=== PATIENT | female | born 1970 | race Caucasian/White ===

== ENCOUNTER 2022-06-09 08:48 | Outpatient (CLI) | payer OTHER, SELFPAY ==
--- OUTSIDE RECORDS SUMMARY | 2022-05-23 09:25 | XMS_ITS | Continuity of Care Document ---
:1970 Author Allergies, Adverse Reactions, Alerts No known allergies Social History Smoking Status Status Start Date End Date Date of Observat ion Never smoked tobacco January 152021 (finding) 12:05pm Additional Data Assigned Sex Female Problems Active Problems Medical Problem Onset Date Status Bunion Active Stage 1 hypertension Active Medications Medication Status Dose Units Route Directions Qty Days Start End Ins tructions Date Date Multiple Active 1 TABLET PO Daily Vitamins W/ Minerals (Womens Multi Vitamin & Mi) Unknown Strength TAB Silver Active 1 % EX Daily 15 uar Sulfadiazine y 2021 11:07am Diphtheria/Te Disconti 0.5 ML IM Once Novemberuar tanus/Acell nued , y Pertussis 2019, (Adacel) 0.5 11:34am 2019 Ml INJ 12:16p m Zoster Disconti 50 MCG IM Once March Vaccine nued , , Recombinant 2020 2020 Adj 2:07pm 2:15pm (Shingrix) 50 Mcg/0.5 Ml INJ Zoster Disconti 50 MCG IM Once January Vaccine nued , , Recombinant 2020 2020 Adj 11:19am 2:30pm (Shingrix) 50 Mcg/0.5 Ml INJ Immunizations Immunization Event Date Not Given Dose Emergency Room Nurse Lot Vac cine Reason Number Number Informatio n Statement (VIS) Deta il COVID-19 Pfizer February 16 PFIZER-BIONTECH [id number] 2020 COVID-19 Pfizer March 09, 2 PFIZER-BIONTECH [id number] 2020 COVID-19 Pfizer November 02, 3 [id number] 2020 Influenza July [id number] Shingrix January 30, GLAXO SK [id number] 2020 Shingrix April 04, 2021 2 GLAXO SK [id number] Tdap December 28, 1 SANOFI [id number] (adolescent/adul 2020 t) Advance Directives Advance Directive Response Recorded Date/Time Has patient completed a No January 15, 2 022 12:05pm Health Care Directive? Insurance Providers Guarantor Angela Gallagher Address [address] [place], [place] [id number] Contact Info. Home Phone: Payer Policy Id Coverage Subscriber's Subscriber Effective Expira tion Id Name Id Date Date [facility] [id number] Angela Gallagher
--- NOTE | 2022-06-09 08:45 | CRLHL7_ITS ---
For Patients: As a result of the Century Cures Act, medical imaging exams and procedure reports are released immediately into your electronic medical record. You may view this report before your referring provider. If you have questions, please contact your health care provider. BILATERAL MAMMOGRAM WITH COMPUTER-AIDED DETECTION AND TOMOSYNTHESIS TECHNIQUE: CC and MLO views were obtained. These mammographic images have been obtained using full-field digital technique. These mammographic images were interpreted with the benefit of computer-aided detection. Breast Tomosynthesis was used in this interpretation. COMPARISON FILM: 03/06/2021, 02/07/2020. FINDINGS: There are scattered areas of fibroglandular density IMPRESSION: There is no radiographic evidence for malignancy. ASSESSMENT: BI-RADS Category 1: Negative RECOMMENDATION: Routine screening mammogram in 1 year. A lay language report of this examination will be provided to the patient. Jr Rene M.D. Diagnostic Radiologist [email or web address] ALIE/Dictated by: Jr Rene MD @ 06/09/2022 12:59:00 PM (Electronically Signed)
== END 2022-06-09 08:49 | disposition home or self-care (01) ==
LOC: MAMMO 08:48
PROVIDERS: PCP Emergency Medicine; Visit Provider Emergency Medicine
DX: Z12.31 Encounter for screening mammogram for malignant neoplasm of breast (principal)
CPT/HCPCS: 77063; 77067

== ENCOUNTER 2023-10-20 09:11 | Outpatient (CLI) | payer OTHER, SELFPAY ==
--- NOTE | 2023-10-20 09:15 | CRLHL7_ITS ---
For Patients: As a result of the Century Cures Act, medical imaging exams and procedure reports are released immediately into your electronic medical record. You may view this report before your referring provider. If you have questions, please contact your health care provider. BILATERAL SCREENING MAMMOGRAM WITH COMPUTER-AIDED DETECTION AND TOMOSYNTHESIS TECHNIQUE: CC and MLO views were obtained. These mammographic images have been obtained using full-field digital technique. These mammographic images were interpreted with the benefit of computer-aided detection. Breast Tomosynthesis was used in this interpretation. COMPARISON FILM: 06/09/22, 03/06/21, 02/07/20. FINDINGS: There are scattered areas of fibroglandular density IMPRESSION: There is no radiographic evidence for malignancy. ASSESSMENT: BI-RADS Category 1: Negative RECOMMENDATION: Routine screening mammogram in 1 year. A lay language report of this examination will be provided to the patient. Jr Rene M.D. Diagnostic Radiologist [email or web address] ALIE/Dictated by: Jr Rene MD @ 10/20/2023 11:51:00 AM (Electronically Signed)
== END 2023-10-20 09:12 | disposition home or self-care (01) ==
PROVIDERS: PCP Emergency Medicine; Visit Provider Emergency Medicine
DX: Z12.31 Encounter for screening mammogram for malignant neoplasm of breast (principal)
CPT/HCPCS: 77063; 77067

== ENCOUNTER 2023-12-23 09:31 | Outpatient (CLI) | payer OTHER, SELFPAY | END 2023-12-23 09:32 | disposition home or self-care (01) | PROVIDERS: PCP Emergency Medicine; Visit Provider Emergency Medicine | DX: I10 Essential (primary) hypertension (principal); Z13.29 Encounter for screening for other suspected endocrine disorder | CPT/HCPCS: 80048; 84443 ==

== ENCOUNTER 2024-01-20 08:17 | Outpatient (CLI) | payer OTHER, SELFPAY | END 2024-01-20 08:18 | disposition home or self-care (01) | LOC: NFLDREF 01-21 07:07 | PROVIDERS: PCP Emergency Medicine; Referring Provider Emergency Medicine; Visit Provider Emergency Medicine | DX: Z13.220 Encounter for screening for lipoid disorders (principal) | CPT/HCPCS: 80061 ==

== ENCOUNTER 2024-12-26 12:59 | Outpatient (CLI) | payer OTHER, SELFPAY | END 2024-12-26 13:00 | disposition home or self-care (01) | LOC: MAMMO 13:00 | PROVIDERS: PCP Emergency Medicine; Visit Provider Emergency Medicine | DX: Z12.31 Encounter for screening mammogram for malignant neoplasm of breast (principal) | CPT/HCPCS: 77063; 77067 ==

== ENCOUNTER 2025-02-21 11:51 | Outpatient (CLI) | payer OTHER, SELFPAY | END 2025-02-21 11:52 | disposition home or self-care (01) | PROVIDERS: PCP Emergency Medicine; Visit Provider Emergency Medicine | DX: I10 Essential (primary) hypertension (principal); Z13.6 Encounter for screening for cardiovascular disorders; Z01.818 Encounter for other preprocedural examination | CPT/HCPCS: 80048; 80061 ==